=== PATIENT | female | born 1980 | race Caucasian/White ===

== ENCOUNTER 2024-08-01 12:14 | Emergency (ER) | payer OTHER, SELFPAY ==
[2024-08-01 12:22] VITALS: BP 120/70; PULSE 82; RESP 16; TEMP 36.2; O2SAT 100
[2024-08-01 12:28] VITALS: BP 120/70; PULSE 82; RESP 16; TEMP 36.2; O2SAT 100
--- NOTE | 2024-08-01 12:54 | ED.EAR ---
HPI - Ear Problem General Chief complaint: Ear Stated complaint: Ear Pain Time Seen by Provider: 08/01/24 12:44 Source: patient and RN notes reviewed Mode of arrival: ambulatory Limitations: no limitations History of Present Illness HPI Narrative: Patient presents today complaining of bilateral ear pain. Reports left ear pain started 10 days ago and right ear pain started today. Denies drainage, but does report some ringing. Currently rates her pain 8/10 and has tried no [id number] treatment prior to arrival. Denies any additional upper respiratory symptoms. Denies frequent swimming or moist conditions in the ear, Q-tip use, frequent ear bud or ear plugs use. Related Data Home Medications Medication Instructions Recorded Confirmed bupropion HCl 150 mg tablet,12 hr 150 mg PO BID 08/01/24 08/01/24 sustained-release buspirone 15 mg tablet 15 mg PO TID 08/01/24 08/01/24 famotidine 20 mg tablet 20 mg PO BID 08/01/24 08/01/24 fluoxetine 10 mg capsule 10 mg PO DAILY 08/01/24 08/01/24 fluoxetine 40 mg capsule 40 mg PO DAILY 08/01/24 08/01/24 Allergies Allergy/AdvReac Type Severity Reaction Status Date / Time codeine Allergy Vomiting Verified 08/01/24 12:25 Review of Systems Review of Systems: CONSTITUTIONAL: Denies body aches, fever, chills, or sweats. EYES: Denies visual changes, redness, or discharge. ENT: Denies rhinorrhea, congestion, sore throat. + bilateral ear pain CARDIOVASCULAR: Denies chest pain, palpitations, or edema. RESPIRATORY: Denies cough or dyspnea. GASTROINTESTINAL: Denies abdominal pain, nausea, vomiting, or diarrhea. GENITOURINARY: Denies dysuria or hematuria. SKIN: Denies rash, itching, or wounds. MUSCULOSKELETAL: Denies back pain, joint pain, or myalgia. NEUROLOGIC: Denies headache, numbness, tingling, or weakness. PSYCH: Denies depression or anxiety. PMFSH Comments At time of signature, I have reviewed and agree with nursing past medical, surgical, social and family history unless otherwise noted. Please see nursing chart for further information. There is no relevant family history pertinent to the presenting complaint Exam Narrative: GENERAL: Well-appearing, well-nourished, and in no acute distress. HEAD: Normocephalic, atraumatic. EYES: EOMI. No redness or drainage. Conjunctivae normal. ENT: Mucous membranes pink and moist. Nares clear. No rhinorrhea. Bilateral movement and tragal tenderness. Left ear canal is very mildly erythematous with scant amount of white debris. No edema. Right ear canal is mildly erythematous without edema. NECK: Normal AROM. CHEST: No respiratory distress. EXTREMITIES: Normal range of motion. No edema. SKIN: Warm, dry, no rash. Capillary refill normal. Normal skin turgor. NEURO: No focal deficits. Alert and oriented x3. Gait steady. PSYCH: Normal affect. No signs of depression or anxiety. Course Course Level of Care: Express Care Visit Vital Signs Vital signs: Vital Signs Temperature 97.1 F L 08/01/24 12:22 Pulse Rate 82 08/01/24 12:22 Respiratory Rate 16 08/01/24 12:22 Blood Pressure 120/70 08/01/24 12:22 Pulse Oximetry 100 08/01/24 12:22 Oxygen Delivery Room Air 08/01/24 12:22 Temperature 97.1 F L 08/01/24 12:28 Pulse Rate 82 08/01/24 12:28 Respiratory Rate 16 08/01/24 12:28 Blood Pressure 120/70 08/01/24 12:28 Pulse Oximetry 100 08/01/24 12:28 Oxygen Delivery Room Air 08/01/24 12:28 Reviewed Medical Decision Making MDM Narrative Medical decision making narrative: Patient will be started on an antibiotic ear drop to treat her otitis externa. Anticipatory guidance given. Differential Diagnosis Differential Diagnosis: Otitis media, otitis externa, ruptured TM, serous otitis Vital Signs Vital Signs: Vital Signs Temperature 97.1 F L 08/01/24 12:22 Pulse Rate 82 08/01/24 12:22 Respiratory Rate 16 08/01/24 12:22 Blood Pressure 120/70 08/01/24 12:22 Pulse
== END 2024-08-01 13:06 | disposition home or self-care (01) ==
PROVIDERS: Emergency Provider Nurse Practitioner
DX: H60.503 Unspecified acute noninfective otitis externa, bilateral (principal); K21.9 Gastro-esophageal reflux disease without esophagitis; F32.A Depression, unspecified
CPT/HCPCS: 99213; G0463